=== PATIENT | female | born 1995 | race Caucasian/White ===

== ENCOUNTER 2021-07-22 15:30 | Outpatient (RCR) | payer OTHER, SELFPAY ==
--- NOTE | 2021-06-04 17:35 | STOPEVAL ---
SPEECH THERAPY INITIAL EVALUATION: Thank you for referring Lolis Jacob to [facility].? The patient is scheduled to be seen for therapy?1x/week every 1-2 weeks for 6 weeks. Please review, sign, date and return this plan of care CHANTELL. I agree with and certify that the following plan of care is medically necessary. Referring Physician Date Attending Provider: Randy Veloz MD *Outpatient Past Medical History Past Medical History Source of Past Medical History Patient Neurological History Hx Neurological Disorders No Significant History Cardiovascular History Hx Cardiac Disorders No Significant History Respiratory History Hx Respiratory Disorders No Significant History Gastrointestinal History Hx Gastrointestinal Disorders No Significant History Genitourinary History Hx Genitourinary Disorders No Significant History Musculoskeletal History Hx Scoliosis Yes Hematological History Hx Hematological Disorders No Significant History Endocrine History Hx Endocrine Disorders No Significant History HEENT History Hx HEENT Disorders No Significant History Integumentary History Hx Skin Disorders No Significant History Psychosocial History Hx Psychiatric Disorders No Significant History Pain History History of Any Previous or Ongoing No Significant History Instance of Pain Evaluation Information Problem Diagnosis hoarseness Onset Last year is worsened Voice Evaluation Voice History Voice History 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 She states that over the last year with wearing the mask in school she's had to talk even more as well as louder than usual. She denies being involved in other activities or organizations that requires her to talk or sing. She states only one time she lost her voice completely but it returned within a week. She reports that her voice is worse in the morning which she attributes to drainage, it slightly improves in the afternoon but worsens (becomes hoarse) again in the evening. She says her spouse has a quiet personality so she feels like she talks a lot. Pt reports having seasonal
--- NOTE | 2021-07-15 16:38 | STOPEVAL ---
SPEECH THERAPY RE EVALUATION AND PLAN OF CARE UPDATE: Thank you for referring Lolis Jacob to [facility] [place].? The patient is scheduled to be seen for therapy?1x/week for 4 weeks. Please review, sign, date and return this plan of care CHANTELL. I agree with and certify that the following plan of care is medically necessary. 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 She states that over the last year with wearing the mask in school she's had to talk even more as well as louder than usual. She denies being involved in other activities or organizations that requires her to talk or sing. She states only one time she lost her voice completely but it returned within a week. She reports that her voice is worse in the morning which she attributes to drainage, it slightly improves in the afternoon but worsens (becomes hoarse) again in the evening. She says her spouse has a quiet personality so she feels like she talks a lot. Pt reports having seasonal allergies. Upon discussing humidity versus dry climates, she stated her classroom last year was extremely dry with < 15% humidity. Pt is not a smoker & does not use drugs or alcohol. Lolis is and does not have children. According to the pt, her ENT informed her that she has a small nodule on her vocal cord . Re eval: Pt has returned to teaching wearing a mask. Pt feels that the mask may be directly related to her hoarseness as that is the only habit within the last year that she has changed over her 5-6 years
--- NOTE | 2021-09-07 11:47 | PCSTNOTE ---
Speech Therapy Discharge: Attending Provider: Randy Veloz MD Patient:Lolis Jacob Date of :1995 On most recent visit, 07/22/21, ST reviewed relaxation exercises, semi occluded vocal tract exercises, easy onset & continuous airflow speech, & abuse/misuses. 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 Pt reported saw her ENT who did not view her vocal cords. She was instructed to return to him in [address] if needed. At this time, after discussion, it was decided the pt continue HEP and continue to monitor any vocal misuse and abuse. Pt demonstrated good understanding of HEP; reviewed with patient the need to monitor (via a tally system) vocal abuses and misuses. Explained importance of relaxation and breathing exercises as well. Patient has not returned for any further treatments since 07/22/2021, therefore she will be discharged at this time. Patient?s initial visit was on 06/04/2021 08:00 and she had a total of 6 visits. The goals have been partially met. Thank you for referring this patient to [facility]. Please review, sign, date and return this discharge summary CHANTELL. I have been updated about the patient's current status and I agree with discharge from the above service at this time. Referring Physician Date
== END 2021-09-02 23:59 | disposition home or self-care (01) ==
LOC: ANHST 15:30
PROVIDERS: PCP Registered Nurse; Visit Provider Otolaryngology
DX: J38.3 Other diseases of vocal cords (principal); R49.0 Dysphonia
CPT/HCPCS: 92507; 92524